=== PATIENT | male | born 2000 | race Caucasian/White ===

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

== ENCOUNTER 2019-03-31 22:23 | Emergency (ER) | payer SELFPAY ==
[~2019-03-31] VITALS: Ht 185.4 cm; Wt 62.0 kg
[2019-03-31 22:30] VITALS: BP 123/78
== END 2019-03-31 22:58 | disposition home or self-care (01) ==
LOC: ED 22:47
DX: G47.00 Insomnia, unspecified (principal); F17.210 Nicotine dependence, cigarettes, uncomplicated
CPT/HCPCS: 99281

== ENCOUNTER 2019-09-01 18:18 | Emergency (ER) | payer MEDICAID ==
[~2019-09-01] VITALS: Ht 185.4 cm; Wt 59.6 kg
[2019-09-01 18:22] VITALS: BP 118/73
[2019-09-01 19:53] LABS: BASOPHILS # (AUTO) 0.03 x10^3/uL (0-0.3); BASOPHILS % (AUTO) 0 % (0-1); EOSINOPHILS # (AUTO) 0.14 x10^3/uL (0-0.8); EOSINOPHILS % (AUTO) 2 % (1-7); LYMPHOCYTES # (AUTO) 1.74 x10^3/uL (1-6.1); LYMPHOCYTES % (AUTO) 23 % (22-44); MD NO; MEAN CORPUSCULAR HGB CONC 33.3 g/dL (33.2-36.2); MEAN CORPUSCULAR VOLUME 96.1 fL (81-97); MEAN PLATELET VOLUME 7.3 fL (7.4-10.4); MONOCYTES # (AUTO) 0.64 x10^3/uL (0-1.4); MONOCYTES % (AUTO) 9 % (2-9); NEUTROPHILS # (AUTO) 4.95 x10^3/uL (1.8-8.0); NEUTROPHILS % (AUTO) 66 % (42-75); PLATELET COUNT 257 x10^3/uL (130-400); RED BLOOD COUNT 4.95 x10^6/uL (4.38-5.82); RED CELL DISTRIBUTION WIDTH 12.5 % (9.4-14.8)
[2019-09-01 20:00] LABS: ALBUMIN 4.2 g/dL (3.4-5.0); ANION GAP 5 mmol/L (5-15); CALCIUM 8.9 mg/dL (8.5-10.1); CHLORIDE 107 mmol/L (98-107); CREATININE 0.97 mg/dL (0.7-1.3)
--- NOTE | 2019-09-01 20:24 | NUR ---
ALL RESULTS ARE BACK AT THIS TIME. CHART UP FOR RECHECK.
== END 2019-09-01 20:47 | disposition home or self-care (01) ==
LOC: ED 19:40
DX: R00.2 Palpitations (principal); F17.210 Nicotine dependence, cigarettes, uncomplicated
CPT/HCPCS: 36415; 80048; 82040; 84443; 85025; 93005; 99284; 99406

== ENCOUNTER 2020-03-21 13:23 | Emergency (ER) | payer MEDICAID ==
[~2020-03-21] VITALS: Ht 185.4 cm; Wt 59.5 kg
--- NOTE | 2020-03-21 14:00 | NUR ---
LUNCH RN: THIS IS A 19 YO MALE C/O GENERAL MALAISE AND NUMBNESS/TINGLING "ALL OVER". PT REPORTS "I'VE BEEN REALLY BUSY ALL WEEK AND I DRANK A BUNCH AND I HAVEN'T EATEN OR DRANK MUCH". PT REPORTS FEELING HIS HEART "RACING" SOMETIMES. PT HAS HX OF ANXIETY. PT AO X 4. SKIN PWD. RESP EVEN AND UNLABORED. NST 90'S NOTED ON DRILL [employer]EM[employer]. REPORT TO PRIMARY RN ROSA ELENA WHO ASSUMED CARE OF PT. CALL LIGHT WITHIN REACH. WILL CONT TO MONITOR PT.
[2020-03-21 14:14] LABS: BASOPHILS # (AUTO) 0.01 x10^3/uL (0-0.3); BASOPHILS % (AUTO) 0 % (0-1); EOSINOPHILS # (AUTO) 0.07 x10^3/uL (0-0.8); EOSINOPHILS % (AUTO) 2 % (1-7); LYMPHOCYTES # (AUTO) 1.18 x10^3/uL (1-6.1); LYMPHOCYTES % (AUTO) 27 % (22-44); MD NO; MEAN CORPUSCULAR HEMOGLOBIN 31.2 pg (27.5-34.5); MEAN CORPUSCULAR HGB CONC 34.1 g/dL (33.2-36.2); MEAN CORPUSCULAR VOLUME 91.3 fL (81-97); MEAN PLATELET VOLUME 7.3 fL (7.4-10.4); MONOCYTES # (AUTO) 0.36 x10^3/uL (0-1.4); MONOCYTES % (AUTO) 8 % (2-9); NEUTROPHILS % (AUTO) 63 % (42-75); PLATELET COUNT 254 x10^3/uL (130-400); RED CELL DISTRIBUTION WIDTH 12.5 % (9.4-14.8)
[2020-03-21 14:24] LABS: ALBUMIN 4.4 g/dL (3.4-5.0); ANION GAP 5 mmol/L (5-15); CALCIUM 9.2 mg/dL (8.5-10.1); CHLORIDE 106 mmol/L (98-107); CREATININE 0.97 mg/dL (0.7-1.3)
--- NOTE | 2020-03-21 14:34 | NUR ---
patient report from nadira boyce. patient feels dehydrated states hasn't really eating alot, and then he went drinking at night. states today he began feeling palpations in his chest.
[2020-03-21 14:54] VITALS: BP 118/78
== END 2020-03-21 15:13 | disposition home or self-care (01) ==
LOC: ED 15:00
DX: E87.6 Hypokalemia (principal); E86.0 Dehydration; R53.1 Weakness; R94.31 Abnormal electrocardiogram [ECG] [EKG]
CPT/HCPCS: 36415; 80048; 82040; 84443; 85025; 93005; 99284

== ENCOUNTER 2020-05-29 19:03 | Emergency (ER) | payer MEDICAID ==
[~2020-05-29] VITALS: Ht 182.9 cm; Wt 58.2 kg
[2020-05-29 19:09] VITALS: BP 131/84
[2020-05-29] MEDS ORDERED: CEFAZOLIN 1,000 MG IM ONE (20:00)
[2020-05-29] MEDS ORDERED: LIDOCAINE 1%-EPI 1:100K, 20ML SQ ONE (20:00)
[2020-05-29] MEDS ORDERED: DIPH,PERTUSS(ACELL),TET VAC/PF 0.5 ML IM-VACC ONE ×2 (20:00→20:36)
[2020-05-29] MEDS ORDERED: LIDOCAINE 1%-EPI 1:100K, 20ML ONE (20:08)
[2020-05-29] MEDS ORDERED: CEFAZOLIN 1,000 MG ONE (20:36)
== END 2020-05-29 21:40 | disposition home or self-care (01) ==
LOC: ED 20:25
DX: S81.012A Laceration without foreign body, left knee, initial encounter (principal); S80.212A Abrasion, left knee, initial encounter; W18.30XA Fall on same level, unspecified, initial encounter; Y93.89 Activity, other specified; Y92.410 Unspecified street and highway as the place of occurrence of the external cause; Y99.8 Other external cause status
CPT/HCPCS: 12031; 73564; 90471; 90715; 96372; 99284; J0690

== ENCOUNTER 2020-06-08 10:19 | Emergency (ER) | payer MEDICAID ==
[~2020-06-08] VITALS: Ht 182.9 cm; Wt 58.0 kg
[2020-06-08 10:21] VITALS: BP 122/74
--- NOTE | 2020-06-08 10:40 | NUR ---
tech in room to clean wound/remove 3 sutures. scab. oozing small amt. as
== END 2020-06-08 11:26 | disposition home or self-care (01) ==
LOC: ED 10:43
DX: S81.012D Laceration without foreign body, left knee, subsequent encounter (principal); Z87.891 Personal history of nicotine dependence; X58.XXXD Exposure to other specified factors, subsequent encounter
CPT/HCPCS: 99281

== ENCOUNTER 2020-07-25 16:21 | Emergency (ER) | payer SELFPAY ==
[~2020-07-25] VITALS: Ht 185.4 cm; Wt 58.5 kg
--- NOTE | 2020-07-25 16:28 | NUR ---
EKG DONE IN TRIAGE
--- NOTE | 2020-07-25 16:43 | NUR ---
PATIENT WALKED BACK FROM TRIAGE WITH CHIEF C/O OF RACING HR. PATIENT STATES ABOUT 45 MINUTES AGO HE WAS DRIVING AND HE FELT HIS HEART RACING AND HIS WATCH SHOWED HR TO BE 142-143 BPM, THIS LASTED ABOUT 20 MINUTES. PATIENT DENIES CHEST PAIN, DENIES DIZZINESS, STATES HE DID HAVE SOME SOB. PATIENT STATES THIS HAPPENS ON AND OFF EVERY FEW MONTHS X2 YEARS. PATIENT STATES HE FEELS "DEHYDRATED." NO SIGNS OF ACUTE DISTRESS, CONNECTED TO CNA LTC, CALL LIGHT WITHIN REACH. ER PROVIDER AT BEDSIDE FOR EVALUATION.
[2020-07-25 17:36] LABS: BASOPHILS % (AUTO) 1 % (0-1); EOSINOPHILS % (AUTO) 2 % (1-7); LYMPHOCYTES % (AUTO) 21 % (22-44); MEAN CORPUSCULAR HEMOGLOBIN 31.1 pg (27.5-34.5); MEAN CORPUSCULAR HGB CONC 33.9 g/dL (33.2-36.2); MEAN PLATELET VOLUME 7.1 fL (7.4-10.4); MONOCYTES % (AUTO) 8 % (2-9); NEUTROPHILS % (AUTO) 69 % (42-75); PLATELET COUNT 270 x10^3/uL (130-400); RED BLOOD COUNT 4.94 x10^6/uL (4.38-5.82); RED CELL DISTRIBUTION WIDTH 12.5 % (9.4-14.8)
[2020-07-25 17:39] LABS: MD NO
[2020-07-25 17:46] LABS: ALANINE AMINOTRANSFERASE 19 U/L (12-78); ALBUMIN 4.2 g/dL (3.4-5.0); ANION GAP 4 mmol/L (5-15); CALCIUM 9.3 mg/dL (8.5-10.1); CHLORIDE 106 mmol/L (98-107); CREATININE 1.05 mg/dL (0.7-1.3)
[2020-07-25 17:56] LABS: ALKALINE PHOSPHATASE 90 U/L (45-117); BILIRUBIN,TOTAL 0.6 mg/dL (0.2-1.0); TOTAL PROTEIN 7.7 g/dL (6.4-8.2)
--- NOTE | 2020-07-25 18:05 | NUR ---
PATIENT RESTING IN [facility] ON PHONE, CONNECTED TO CHEF ASSISTANT, NO SIGNS OF ACUTE DISTRESS, CALL LIGHT WITHIN REACH, NO FURTHER NEEDS AT THIS TIME.
[2020-07-25 18:49] VITALS: BP 107/68
--- NOTE | 2020-07-25 18:50 | NUR ---
Patient given discharge instructions and they have confirmed that they understand the instructions. Patient ambulatory with steady gait from ED.
== END 2020-07-25 18:51 | disposition home or self-care (01) ==
LOC: ED 18:27
DX: R00.2 Palpitations (principal); I21.9 Acute myocardial infarction, unspecified; I51.7 Cardiomegaly; R42 Dizziness and giddiness
CPT/HCPCS: 36415; 71045; 80053; 83735; 84443; 85025; 93005; 99285

== ENCOUNTER 2020-09-20 06:25 | Emergency (ER) | payer MEDICAID ==
[~2020-09-20] VITALS: Ht 185.4 cm; Wt 59.5 kg
--- NOTE | 2020-09-20 06:57 | NUR ---
PT CAME INTO ED TONIGHT FOR CHEST POUNDING SENSATION AND WEAKNESS. PT DENIES ANYTHING SIMILAR HAPPENING IN THE PAST, GROSS NEURO INTACT, PULSES 2+, CLEAR HEART AND LUNG SOUNDS ON AUSCULTATION. NAD, RESTING ON GURNEY, PLACED ON SPO2/BP MONITORING AT THIS TIME. WCTM. BED IN LOWEST, CALL LIGHT ON LAP, RAILS ENGAGED. BEDSIDE REPORT TO RANULFO RN, PT CARE TRANSFERRED AT THIS TIME.
--- NOTE | 2020-09-20 07:16 | NUR ---
REPORT FROM VARGAS MONSIVAIS RESTING
[2020-09-20 07:55] LABS: BASOPHILS % (AUTO) 0 % (0-1); EOSINOPHILS % (AUTO) 1 % (1-7); LYMPHOCYTES % (AUTO) 28 % (22-44); MEAN CORPUSCULAR HEMOGLOBIN 31.6 pg (27.5-34.5); MEAN CORPUSCULAR HGB CONC 34.7 g/dL (33.2-36.2); MEAN PLATELET VOLUME 7.4 fL (7.4-10.4); MONOCYTES % (AUTO) 9 % (2-9); NEUTROPHILS % (AUTO) 61 % (42-75); PLATELET COUNT 250 x10^3/uL (130-400); RED BLOOD COUNT 4.76 x10^6/uL (4.38-5.82); RED CELL DISTRIBUTION WIDTH 12.9 % (9.4-14.8)
[2020-09-20 07:59] LABS: MD NO
[2020-09-20 08:08] LABS: ALBUMIN 4.5 g/dL (3.4-5.0); ANION GAP 8 mmol/L (5-15); CHLORIDE 106 mmol/L (98-107)
[2020-09-20 08:11] LABS: ALANINE AMINOTRANSFERASE 18 U/L (12-78); ALKALINE PHOSPHATASE 82 U/L (45-117); BILIRUBIN,TOTAL 0.7 mg/dL (0.2-1.0); CREATININE 0.87 mg/dL (0.7-1.3); TOTAL PROTEIN 7.7 g/dL (6.4-8.2)
--- NOTE | 2020-09-20 08:27 | NUR ---
TASK RN NOTE: PT CURRENTLY AWAITING ERMD RECHECK.
[2020-09-20 08:29] VITALS: BP 99/57
--- NOTE | 2020-09-20 08:40 | NUR ---
TASK RN NOTE: PT GIVEN TWO CUPS TO ORANGE [employer]UICE FOR BLOOD GLUCOSE VOODOO. PLAN FOR DC. PT VERBALIZES UNDERSTANDING. FRIEND AT BEDSIDE.
--- NOTE | 2020-09-20 08:59 | NUR ---
Patient/Caregiver given discharge instructions and they have confirmed that they understand the instructions. Patient ambulatory with steady gait.
== END 2020-09-20 09:00 | disposition home or self-care (01) ==
LOC: ED 08:54
DX: R00.2 Palpitations (principal); E16.2 Hypoglycemia, unspecified; R06.02 Shortness of breath; R07.9 Chest pain, unspecified
CPT/HCPCS: 36415; 71045; 80053; 85025; 93005; 99285

== ENCOUNTER 2020-10-05 12:55 | Emergency (ER) | payer MEDICAID ==
[~2020-10-05] VITALS: Ht 185.4 cm; Wt 58.3 kg
--- NOTE | 2020-10-05 13:24 | NUR ---
PT IS A 20/M WHO COMPLAINS OF PENILE DISCHARGE AND PAINFUL URINATION X 1 WEEK. GIRLFRIEND AT BEDSIDE. SHE STATES SHE TESTED POSITIVE FOR CHLYAMIDIA YESTERDAY. HE IS HERE FOR AN STD CHECK. CALL LIGHT WITHIN REACH.
[2020-10-05] MEDS ORDERED: CEFTRIAXONE 250 MG ONE (13:51)
[2020-10-05] MEDS ORDERED: AZITHROMYCIN 500 MG TABLET ONE (13:55)
[2020-10-05] MEDS ORDERED: CEFTRIAXONE 250 MG IM ONE (14:00)
[2020-10-05] MEDS ORDERED: AZITHROMYCIN 500 MG TABLET PO ONE (14:00)
--- NOTE | 2020-10-05 14:13 | NUR ---
MEDICATED PT PER EMAR. GIRLFRIEND AT BEDSIDE. NO ACUTE DISTRESS. AWAITING D/C, CALL LIGHT WITHIN REACH.
[2020-10-05 14:17] VITALS: BP 125/74
--- NOTE | 2020-10-05 14:25 | NUR ---
Patient/Caregiver given discharge instructions and they have confirmed that they understand the instructions. Patient ambulatory with steady gait.
== END 2020-10-05 14:23 | disposition home or self-care (01) ==
LOC: ED 13:52
DX: A56.01 Chlamydial cystitis and urethritis (principal)
CPT/HCPCS: 96372; 99283; J0696

== ENCOUNTER 2020-10-22 16:03 | Emergency (ER) | payer SELFPAY ==
[~2020-10-22] VITALS: Ht 182.9 cm; Wt 57.7 kg
--- NOTE | 2020-10-22 16:38 | NUR ---
[employer] DEVICE SCIENTIST: PT TO ROOM FROM [facility]ACE[facility]IL[facility]
--- NOTE | 2020-10-22 16:45 | NUR ---
PATIENT ARRIVES WITH BODY ACHES, FEVER, LIGHT HEADED, DIZZINESS THAT BEGAN TODAY.
[2020-10-22] MEDS ORDERED: ACETAMINOPHEN 500 MG TABLET ONE (18:05)
--- NOTE | 2020-10-22 18:09 | NUR ---
PATIENT GIRLFRIEND HERE. THEY ATE CHICKEN NUGGETS STATES FEELING BETTER BUT FEVER UP. GAVE TYLENOL AND WILL REASSESS
[2020-10-22 18:30] VITALS: BP 128/78
[2020-10-22] MEDS ORDERED: ACETAMINOPHEN 500 MG TABLET PO ONE (18:30)
== END 2020-10-22 18:42 | disposition home or self-care (01) ==
LOC: ED 18:35
DX: B34.9 Viral infection, unspecified (principal); R00.0 Tachycardia, unspecified; R07.9 Chest pain, unspecified; F17.290 Nicotine dependence, other tobacco product, uncomplicated
CPT/HCPCS: 71046; 96372; 99283; 99406

== ENCOUNTER 2020-10-23 09:08 | Emergency (ER) | payer SELFPAY ==
[~2020-10-23] VITALS: Ht 182.9 cm; Wt 57.4 kg
--- NOTE | 2020-10-23 09:33 | NUR ---
PT AMBULATORY TO ROOM 28 W/ C/O FATIGUE AND SORE THROAT AND NOW HAS SORES ON TONGUE. PT AND S/O STATES EXPOSURE TO COVID AND NEGATIVE TEST 1 WEEK AFTER EXPOSURE. PT DENIES ANY NEW SX. DENIES RESP ISSUES/LOSS OF TASTE/SMELL. PT RESTING ON GURNEY. NADN. VSS. PT NOTED TO HAVE TEMP 100.8 IN LOBBY. PIV INITIATED.
--- NOTE | 2020-10-23 10:16 | NUR ---
PT RESTING ON SANDRA. NADN. DEMARCO. STUDENT AT BEDSIDE FOR ASSESSMENT.
[2020-10-23] MEDS ORDERED: ACETAMINOPHEN 325 MG TABLET ONE (10:44)
[2020-10-23] MEDS ORDERED: ACETAMINOPHEN 325 MG TABLET PO ONE (11:00)
[2020-10-23 11:22] LABS: BASOPHILS % (AUTO) 0 % (0-1); EOSINOPHILS % (AUTO) 1 % (1-7); LYMPHOCYTES % (AUTO) 10 % (22-44); MEAN CORPUSCULAR HEMOGLOBIN 31.5 pg (27.5-34.5); MEAN CORPUSCULAR HGB CONC 35.3 g/dL (33.2-36.2); MEAN PLATELET VOLUME 7.6 fL (7.4-10.4); MONOCYTES % (AUTO) 12 % (2-9); NEUTROPHILS % (AUTO) 77 % (42-75); PLATELET COUNT 209 x10^3/uL (130-400); RED BLOOD COUNT 4.91 x10^6/uL (4.38-5.82); RED CELL DISTRIBUTION WIDTH 12.3 % (9.4-14.8)
[2020-10-23 11:33] VITALS: BP 110/60
--- NOTE | 2020-10-23 11:33 | NUR ---
PT RESTING ON GURNEY. NADN. DEMARCO.
[2020-10-23 11:41] LABS: RAPID INFLUENZA A Negative (Negative); RAPID INFLUENZA B Negative (Negative)
[2020-10-23 11:42] LABS: MD SCAN
--- NOTE | 2020-10-23 11:44 | NUR ---
PT CHART REVIEWED AND PLACED FOR RECHECK.
== END 2020-10-23 13:22 | disposition home or self-care (01) ==
LOC: ED 09:34
DX: B34.9 Viral infection, unspecified (principal); Z20.822 Contact with and (suspected) exposure to COVID-19; K02.9 Dental caries, unspecified
CPT/HCPCS: 85025; 87400; 87635; 99283

== ENCOUNTER 2020-12-29 11:44 | Emergency (ER) | payer MEDICAID ==
[~2020-12-29] VITALS: Ht 185.4 cm; Wt 58.5 kg
--- NOTE | 2020-12-29 12:40 | NUR ---
ISO CART PLACED OUTSIDE ROOM.
--- NOTE | 2020-12-29 12:49 | NUR ---
REPORTS ELEVATED TEMP, BODY ACHES, SWEATS, CHILLS X 1 DAY. TOOK DAYQUIL (LAST DOSE 0900 TODAY). LAST ORAL INTAKE: "LOTS OF FLUIDS" TODAY. DENIES KNOWN COVID EXPOSURE. NO COVID VACCINATION TO DATE.
[2020-12-29 12:55] VITALS: BP 111/70
== END 2020-12-29 13:29 | disposition home or self-care (01) ==
LOC: ED 13:20
DX: B34.9 Viral infection, unspecified (principal)
CPT/HCPCS: 99282

== ENCOUNTER 2021-01-14 19:25 | Emergency (ER) | payer SELFPAY ==
[~2021-01-14] VITALS: Ht 185.4 cm; Wt 59.0 kg
--- NOTE | 2021-01-14 19:40 | NUR ---
PT C/O OF BILATERAL LOWER BACK PAIN. STATES HE HAS MILD STERNAL CP. REPORTS DRINKING ALCOHOL A LOT MORE THAN USUAL. REPORTS VAPING/. DENIES N/V, SOB, HEADACHE. PT WA;LKED BACK TO ROOM, ATTACHED TO CARDIAC/SP02/BP MONITORS. HX OF HEARTBURN
[2021-01-14] MEDS ORDERED: KETOROLAC 30 MG/1 ML IM ONE (20:30)
[2021-01-14 20:39] LABS: BASOPHILS % (AUTO) 1 % (0-1); EOSINOPHILS % (AUTO) 2 % (1-7); LYMPHOCYTES % (AUTO) 26 % (22-44); MEAN CORPUSCULAR HEMOGLOBIN 31.8 pg (27.5-34.5); MEAN CORPUSCULAR HGB CONC 35.1 g/dL (33.2-36.2); MEAN PLATELET VOLUME 6.8 fL (7.4-10.4); MONOCYTES % (AUTO) 8 % (2-9); NEUTROPHILS % (AUTO) 64 % (42-75); PLATELET COUNT 263 x10^3/uL (130-400); RED BLOOD COUNT 4.66 x10^6/uL (4.38-5.82); RED CELL DISTRIBUTION WIDTH 13.5 % (9.4-14.8)
[2021-01-14 20:45] LABS: MD NO
[2021-01-14] MEDS ORDERED: KETOROLAC 30 MG/1 ML ONE (20:50)
[2021-01-14 20:51] LABS: ANION GAP 4 mmol/L (5-15); CALCIUM 8.8 mg/dL (8.5-10.1); CHLORIDE 106 mmol/L (98-107)
[2021-01-14 20:52] LABS: MICROSCOPIC NOT IND
[2021-01-14 20:52] LABS: ALANINE AMINOTRANSFERASE 20 U/L (12-78); ALBUMIN 3.9 g/dL (3.4-5.0)
[2021-01-14 20:54] LABS: ALKALINE PHOSPHATASE 66 U/L (45-117); BILIRUBIN,TOTAL 0.3 mg/dL (0.2-1.0); TOTAL PROTEIN 7.3 g/dL (6.4-8.2)
--- NOTE | 2021-01-14 21:33 | NUR ---
US AT BEDSIDE WITH PT. DAV.
--- NOTE | 2021-01-14 23:00 | NUR ---
REPORT TO BRISEIDA BARAKAT.
[2021-01-14 23:02] VITALS: BP 112/76
== END 2021-01-14 23:54 | disposition home or self-care (01) ==
LOC: ED 23:31
DX: S39.012A Strain of muscle, fascia and tendon of lower back, initial encounter (principal); X58.XXXA Exposure to other specified factors, initial encounter; Y93.89 Activity, other specified; Y92.89 Other specified places as the place of occurrence of the external cause; Y99.8 Other external cause status
CPT/HCPCS: 36415; 76700; 80053; 81003; 83690; 85025; 96372; 99284; J1885